=== PATIENT | female | born 1985 | race Caucasian/White ===

== ENCOUNTER → 2021-07-16 13:43 | Outpatient (BNVA) | payer BC, SELFPAY | PROVIDERS: PCP Family Medicine; Referring Provider Family Medicine; Visit Provider Physician Assistant Surgical | DX: E66.01 Morbid (severe) obesity due to excess calories (principal); Z71.3 Dietary counseling and surveillance | CPT/HCPCS: 99202 ==

== ENCOUNTER 2021-07-16 15:20 | Outpatient (REF) | payer BC, SELFPAY ==
[2021-07-19 14:30] LABS: H Pylori Breath Test Negative (Negative)
== END 2021-07-16 15:21 | disposition home or self-care (01) ==
LOC: HO.LNP 15:20
PROVIDERS: Visit Provider Physician Assistant Surgical
DX: E66.01 Morbid (severe) obesity due to excess calories (principal); Z11.0 Encounter for screening for intestinal infectious diseases
CPT/HCPCS: 83013

== ENCOUNTER → 2021-07-19 15:50 | Outpatient (BNVA) | payer BC, SELFPAY | PROVIDERS: PCP Family Medicine; Visit Provider Counselor Mental Health | DX: F33.1 Major depressive disorder, recurrent, moderate (principal); E66.01 Morbid (severe) obesity due to excess calories | CPT/HCPCS: 90791 ==

== ENCOUNTER → 2021-08-02 16:45 | Outpatient (BNVA) | payer BC, SELFPAY | PROVIDERS: PCP Family Medicine; Visit Provider Counselor Mental Health | DX: F33.1 Major depressive disorder, recurrent, moderate (principal); E66.01 Morbid (severe) obesity due to excess calories | CPT/HCPCS: 90834 ==

== ENCOUNTER → 2021-08-08 14:18 | Outpatient (BNVA) | payer BC, SELFPAY | PROVIDERS: PCP Family Medicine; Visit Provider Physician Assistant Surgical | DX: Z13.89 Encounter for screening for other disorder (principal) ==

== ENCOUNTER → 2021-08-15 16:00 | Outpatient (BNVA) | payer BC, SELFPAY | PROVIDERS: PCP Family Medicine; Visit Provider Counselor Mental Health | DX: F33.1 Major depressive disorder, recurrent, moderate (principal); E66.01 Morbid (severe) obesity due to excess calories | CPT/HCPCS: 90834 ==

== ENCOUNTER → 2021-08-20 08:17 | Outpatient (BNVA) | payer BC, SELFPAY | PROVIDERS: PCP Family Medicine; Visit Provider Dietitian, Registered | DX: E66.01 Morbid (severe) obesity due to excess calories (principal); Z68.43 Body mass index [BMI] 50.0-59.9, adult | CPT/HCPCS: 97802 ==

== ENCOUNTER 2021-08-29 08:30 | Outpatient (REF) | payer BC, SELFPAY ==
--- NOTE | ~2021-08-29 | US_ITS ---
EXAMINATION: US COMPLETE ABDOMEN WITH LIVER ELASTOGRAPHY CLINICAL INFORMATION: Morbid/severe obesity. COMPARISON: None TECHNIQUE: Real-time imaging of the abdominal viscera. Noninvasive ultrasound liver fibrosis assessment is performed using Hilario ElastPQ point quantification shear wave elastography (2D-SWE) with a C5-2 MHz transducer. Multiple elastography samples are obtained. FINDINGS: PANCREAS: Normal. The visualized pancreatic head and body are normal in appearance. The remainder of the pancreas is obscured from visualization by the overlying bowel gas. ABDOMINAL AORTA: The proximal, middle, and distal aortic segments are normal in caliber. INFERIOR VENA CAVA: Visualized portions are normal. LIVER: The liver demonstrates normal size and contour with increased echogenicity. No focal lesion or intrahepatic biliary duct dilatation. The right lobe measures 19.2 cm in length. The left lobe measures 12.9 cm in length. Portal flow is hepatopetal. Shear wave liver elastography median stiffness is 1.74 m/s (reference: Normal median stiffness is 1.3 m/s or less). IQR/median stiffness to assess sampling precision is 0.13 (reference: Good quality data set is IQR/median stiffness of 0.15 or less). GALLBLADDER: Normal. The gallbladder is physiologically distended without evidence of stones, sludge, polyps, wall thickening or pericholecystic fluid. COMMON BILE DUCT: Normal in caliber measuring 0.5 cm in diameter. RIGHT KIDNEY: Normal. No hydronephrosis. No renal calculi or focal parenchymal lesions. The kidney measures 12.7 cm in maximum dimension. LEFT KIDNEY: Normal. No hydronephrosis. No renal calculi or focal parenchymal lesions. The kidney measures 13.7 cm in maximum dimension. SPLEEN: Normal. The spleen measures 13.6 cm in maximum dimension. FREE FLUID: None. US/US abdomen comp w elastography IMPRESSION: Hepatic steatosis without focal lesion. The rest of the abdominal ultrasound is unremarkable. Liver Elastography: Median liver stiffness measures 1.74 m/s corresponding to cACLD suggested. REFERENCE: Society of Radiologists in Ultrasound Liver Stiffness Thresholds (2020): LIVER STIFFNESS THRESHOLDS: *Liver Stiffness equal or less than 1.3 m/s: High probability of being normal. *Liver Stiffness less than 1.7 m/s: In the absence of other known clinical signs, rules out compensated advanced chronic liver disease. *Liver Stiffness 1.7-2.1 m/s: Suggestive of compensated advanced chronic liver disease but need further test for confirmation. *Liver Stiffness over 2.1 m/s: Rules in compensated advanced chronic liver disease. *Liver Stiffness over 2.4 m/s: Suggestive of clinically significant portal hypertension. QUALITY OF DATA SET: *IQR/Median value equal or less than 0.15 implies a quality data set. *IQR/Median value over 0.15 implies a poor quality data set. SIGNIFICANT CHANGE FROM PRIOR EXAM: Significant change if liver stiffness measurement is 10% or greater from prior exam. OTHER CONSIDERATIONS: The stage of liver fibrosis may be overestimated in the setting of acute hepatitis, liver inflammation, elevated liver function tests, hepatic vascular congestion, obstructive cholestasis, non-fasting state, and infiltrative diseases such as amyloidosis and lymphoma. In some patients with NAFLD, the liver stiffness thresholds for compensated advanced chronic liver disease may be lower. In causes other than viral hepatitis and NAFLD, liver stiffness thresholds are not well established.
--- NOTE | ~2021-08-29 | XR_ITS ---
EXAMINATION: XR CHEST CLINICAL INFORMATION: Morbid obesity COMPARISON: None TECHNIQUE: 2 views of the chest were obtained. FINDINGS: No significant abnormality is noted involving the heart, lungs, mediastinum, bony thorax or soft tissues. XR/XR chest 2V IMPRESSION: No acute disease.
--- NOTE | ~2021-08-29 | FL_ITS ---
EXAMINATION: XR FLUOROSCOPY UPPER GI WITH AIR CLINICAL INFORMATION: Morbid obesity. COMPARISON: None TECHNIQUE: Air-contrast upper GI examination. FINDINGS: Patient swallowed thin and thick barium and half-inch diameter barium tablet without difficulty. There is normal apposition of the vocal cords while saying E. There is normal elevation of the soft palate while saying candy. No nasopharyngeal reflux or tracheal aspiration was seen. There is normal esophageal motility without mucosal abnormality or stricture. There is a minimal sliding hiatal hernia present. No gastroesophageal reflux was elicited during the study including with water siphon test. The stomach demonstrates normal distensibility without abnormal mass lesion or ulceration. There was no delay in gastric emptying. The duodenal bulb and sweep appeared unremarkable. FLUOROSCOPY TIME: 1.9 minutes DOSE AREA PRODUCT: 20.507 Gy-cm2 (high-centimeter squared) FL/FL upper GI w air IMPRESSION: Minimal sliding hiatal hernia. Otherwise, unremarkable air-contrast upper GI examination.
== END 2021-08-29 08:31 | disposition home or self-care (01) ==
LOC: HO.US 08:30
PROVIDERS: Visit Provider Physician Assistant Surgical
DX: Z01.818 Encounter for other preprocedural examination (principal); E66.01 Morbid (severe) obesity due to excess calories; K21.9 Gastro-esophageal reflux disease without esophagitis
CPT/HCPCS: 71046; 74246; 76705; 76981

== ENCOUNTER → 2021-09-13 12:15 | Outpatient (BNVA) | payer BC, SELFPAY | PROVIDERS: PCP Family Medicine; Referring Provider Physician Assistant Surgical; Visit Provider Counselor Mental Health | DX: F33.1 Major depressive disorder, recurrent, moderate (principal); E66.01 Morbid (severe) obesity due to excess calories | CPT/HCPCS: 90834 ==

== ENCOUNTER → 2021-09-19 15:01 | Outpatient (BNVA) | payer BC, SELFPAY | PROVIDERS: PCP Family Medicine; Visit Provider Physician Assistant Surgical | DX: Z13.89 Encounter for screening for other disorder (principal) ==

== ENCOUNTER → 2021-09-27 12:00 | Outpatient (BNVA) | payer BC, SELFPAY | PROVIDERS: PCP Family Medicine; Visit Provider Counselor Mental Health | DX: F33.1 Major depressive disorder, recurrent, moderate (principal); E66.01 Morbid (severe) obesity due to excess calories | CPT/HCPCS: 90832 ==

== ENCOUNTER 2021-10-05 08:41 | Outpatient (REF) | payer BC, SELFPAY ==
[2021-10-05 09:03] LABS: MANUAL DIFF FLAG NO
--- NOTE | 2021-10-05 09:07 | ECG_ITS ---
Test Reason : E66.01 Blood Pressure : / mmHG Vent. Rate : 064 BPM Atrial Rate : 064 BPM P-R Int : 168 ms QRS Dur : 094 ms QT Int : 426 ms P-R-T Axes : 021 -19 010 degrees QTc Int : 439 ms Normal sinus rhythm Incomplete right bundle branch block Borderline ECG No previous ECGs available Referred By: Abdifatah Miller Electronically Signed By:Daljit Martinez
[2021-10-05 10:29] LABS: Basophils Percent Auto 0.2 % (0-2); Eosinophils Absolute Auto 0.2 X10*3/uL (0.0-0.4); Eosinophils Percent Auto 2.2 % (0-4); Hematocrit 42.2 % (37.0-47.0); Hemoglobin 13.2 g/dl (12.0-16.0); Imm Gran Abs Auto 0.06 X10*3/uL (0.00-0.03); Imm Gran Pct Auto 0.7 % (0.0-0.4); Lymphocytes Absolute Auto 2.1 X10*3/uL (1.2-4.9); Lymphocytes Percent Auto 25.6 % (20-40); Mean Corpuscular HGB Conc 31.3 g/dl (31.0-35.0); Mean Corpuscular Hemoglobin 27.8 pg (27.0-33.0); Mean Corpuscular Volume 88.8 fL (80.0-98.0); Mean Platelet Volume 9.6 fL (9.4-12.3); Monocytes Absolute Auto 0.4 X10*3/uL (0.1-1.2); Monocytes Percent Auto 4.3 % (2-11); Neutrophils Absolute Auto 5.5 x10*3/uL (2.0-8.3); Platelet Count 313 X10*3/uL (160-400); Red Blood Count 4.75 X10*6/uL (4.20-5.50); White Blood Count 8.2 X10*3/uL (4.8-10.8)
[2021-10-05 10:35] LABS: Estimated Average Glucose 114 mg/dL; Hemoglobin A1c % 5.6 %
[2021-10-05 11:27] LABS: Ferritin 36 ng/mL (10-122); TSH reflex Free T4 1.62 uIU/mL (0.32-4.0); Vitamin D 25-OH Total 20.3 ng/mL (>30)
[2021-10-05 11:30] LABS: Folate 7.9 ng/mL (> or = 4.0); Vitamin B12 241 pg/mL (200-900)
[2021-10-05 11:42] LABS: Alanine Aminotransferase 19 U/L (0-31); Albumin Level 4.1 g/dL (3.5-5.0); Alkaline Phosphatase 55 U/L (39-117); Anion Gap 14 (12-20); Aspartate Amino Transferase 13 U/L (5-31); Bilirubin Total 0.5 mg/dL (0.0-1.0); Blood Urea Nitrogen 14 mg/dL (9-16); C Reactive Protein 1.97 mg/dL (< or = 0.50); Calcium 9.5 mg/dL (8.4-10.2); Carbon Dioxide 26 mmol/L (22-29); Chloride 104 mmol/L (96-108); Cholesterol 203 mg/dL; Estimated Glomerular Filt Rate > 60; Glucose Random 99 mg/dL (60-115); HDL Cholesterol 40 mg/dL; Iron 67 mcg/dL (30-160); LDL Cholesterol Calculated 136 mg/dl; Percent Iron Saturation 19 % (15-50); Potassium 4.7 mmol/L (3.3-5.1); Sodium 139 mmol/L (135-145); Total Iron Binding Capacity 347 mcg/dL (228-428); Triglycerides 136 mg/dL; Unsaturated Iron Binding 280 ug/dL
[2021-10-05 12:00] LABS: Insulin 21 uU/mL (2-29)
[2021-10-08 16:21] LABS: PTHI 35 pg/mL (16-77)
[2021-10-09 09:48] LABS: Calcium (PTHI) 9.5
[2021-10-10 02:52] LABS: Zinc 83 mcg/dL (60-130)
[2021-10-10 10:22] LABS: Vitamin A 37 mcg/dL (38-98)
[2021-10-11 15:41] LABS: Vitamin B1 <6 nmol/L (8-30)
== END 2021-10-05 08:42 | disposition home or self-care (01) ==
LOC: HO.LAB 08:41
PROVIDERS: PCP Family Medicine; Visit Provider Physician Assistant Surgical
DX: E66.01 Morbid (severe) obesity due to excess calories (principal)
CPT/HCPCS: 36415; 80053; 80061; 82306; 82607; 82728; 82746; 83036; 83525; 83540; 83970; 84425; 84443; 84590; 84630; 85025; 86140; 93005

== ENCOUNTER → 2021-10-11 16:00 | Outpatient (BNVA) | payer BC, SELFPAY | PROVIDERS: PCP Family Medicine; Visit Provider Counselor Mental Health | DX: F33.1 Major depressive disorder, recurrent, moderate (principal); E66.01 Morbid (severe) obesity due to excess calories | CPT/HCPCS: 90832 ==

== ENCOUNTER → 2021-11-08 09:34 | Outpatient (REF) | payer BC, SELFPAY ==
--- NOTE | 2021-11-08 09:36 | CA_ITS ---
Acquisition Time: 2021-11-08 10:08:48 Total Exercise Time: 00:05:10 Test Indications: abn ekg Medications: see chart Protocol: JOSÉ Max HR: 164 BPM 0% of Pred: * BPM Max BP: 190/060 mmHG Max Work Load: 7.0 METS exercise stress test with exercise 5 min 10 sec of José protocol, achieving 90% MPHR, with fatigue and request to stop, without anginal symptoms, without arrythmia, with normotensive response to exercise, without EKG changes meeting criteria for ischemia. Test reviewed with Dr Martinez. Referred By: Александр Allison Overread By: KHADIJAH VILLASEÑOR
== END ==
LOC: HO.CARD 09:34
PROVIDERS: PCP Family Medicine; Visit Provider Surgery
DX: I45.10 Unspecified right bundle-branch block (principal)
CPT/HCPCS: 93017

== ENCOUNTER → 2021-11-22 09:24 | Outpatient (REF) | payer BC, SELFPAY ==
--- NOTE | 2021-11-22 09:26 | CA_ITS ---
Transthoracic Echocardiogram Patient (Last, First, Middle): Tona Perez, Gender: Female Date of : 1985 Age: 36 Procedure Date: 11/22/2021 Procedure Type: Transthoracic Echocardiogram Location: OP Height: 167.64 cm Weight: 141.07 kg BSA: 2.41 m2 Heart Rate: bpm BP: 128 / 76 mmHg Office Service Coordinator: [email or web address] Referring MD: Александр Allison MD Printing Table Worker: Tera Lim MD Symptoms: I45.10 - Unspecified right bundle-branch block Study Quality: Adequate ECG Rhythm: Sinus Conclusions: - Essentially normal study Findings Left Ventricle Normal left ventricular size, thickness, and systolic function. The visually estimated ejection fraction is between 60-65%. Spectral Doppler is indicative of a normal filling pattern. Right Ventricle Normal right ventricular cavity size and systolic function. Atria The left atrium is likely dilated. Interatrial shunt cannot be excluded. The right atrium is normal in size. Aortic Valve The aortic valve structure and function is likely normal. There is no aortic valve stenosis. There is no aortic valve regurgitation. Mitral Valve Likely normal mitral valve structure and function. There is trace mitral valve regurgitation. There is no mitral valve stenosis. Pulmonic Valve The pulmonic valve was not well visualized. Tricuspid Valve Likely normal tricuspid valve structure and function. Tricuspid regurgitation envelope is inadequate for calculation of right ventricular systolic pressure. Normal right atrial pressure. Great Vessels All visible segments of the aorta are normal in size. The pulmonary artery was not well visualized. Venous The inferior vena cava is normal in size and collapses greater than 50% with inspiration. Pericardium/Pleural There is no evidence of pericardial effusion. Prior Study Comparison No prior study available for comparison. Measurements 2D Linear Measurements IVSd: 1.07 0.6-0.9/0.6-1.0 cm LVIDd: 4.78 3.9-5.3/4.2-5.9 cm LVIDd Index: 1.98 2.4-3.2/2.2-3.1 cm/m2 LVIDs: 2.89 2.0-3.6 cm LVPWd: 0.99 0.7-1.1 cm LA Diam: 3.80 2.7-3.8/3.0-4.0 cm LAIDs Index: 1.58 1.5-2.3 cm/m2 LV Mass: 219.67 67-162/88-224 g LV Mass Index: 91.15 43-95/49-115 g/m2 LVOT Diam: 1.90 3.0+(-)1.3 cm 2D Systolic Function EF 4C: 62.10 >55% EF 2C: 63.40 >55% EF BiP: 62.70 >55% Mitral Valve MV Pk E: 0.86 MV PK A: 0.50 MV Decel Time: 250.00 E/A: 1.70 E'Lateral: 14.90 E'Medial: 8.59 E/E' Med: 10.00 E/E' Lat: 5.80 PHT: 73.00 MVA PHT: 3.01 Decel [place]: 3.45 Aortic Valve AoV Pk Tray: 1.41 AoV Mn Tray: 0.96 AoV VTI: 0.38 AoV Pk Grad: 8.00 Aov Mn Grad: 4.00 LOKESH Cont.VTI: 2.14 LVOT LVOT Pk Tray: 1.11 LVOT Mn Tray: 0.72 LVOT VTI: 0.29 LVOT Pk Grad: 5.00 LVOT Mn Grad: 3.00 LVOT Diam: 1.90 LVOT Area: 2.84 Diastolic Function MV Pk E: 0.86 MV Pk A: 0.50 E/A: 1.70 E'Medial: 8.59 E/E' Med: 10.00 E' Laterial: 14.90 E/E' Lat: 5.80 Right Ventricle TAPSE (mm): 21.70 TVS' Tray: 10.80 Tricuspid Valve RA Press: 3.00 Great Vessels Aorta Sinus of Valsalva: 3.08 2.0-3.[address] [place]: 2.25 1.7-3.4 cm Ao Asc: 3.00 2.1-3.4 cm Updated in Other Vendor System with Status of Final Tera Lim MD electronically signed on 11/23/2021 5:33:42 PM with status of Final
== END ==
LOC: HO.CARD 09:24
PROVIDERS: PCP Family Medicine; Visit Provider Surgery
DX: I45.10 Unspecified right bundle-branch block (principal)
CPT/HCPCS: 93306

== ENCOUNTER 2021-12-06 08:35 | Inpatient (IN) | payer BC, SELFPAY ==
[2021-11-21 11:44] VITALS: BMI 50.2
[2021-11-22 10:41] LABS: MANUAL DIFF FLAG NO
[2021-11-22 11:07] LABS: Basophils Percent Auto 0.4 % (0-2); Eosinophils Absolute Auto 0.2 X10*3/uL (0.0-0.4); Eosinophils Percent Auto 2.5 % (0-4); Hematocrit 40.6 % (37.0-47.0); Hemoglobin 12.8 g/dl (12.0-16.0); Imm Gran Abs Auto 0.04 X10*3/uL (0.00-0.03); Imm Gran Pct Auto 0.6 % (0.0-0.4); Lymphocytes Absolute Auto 2.2 X10*3/uL (1.2-4.9); Lymphocytes Percent Auto 30.3 % (20-40); Mean Corpuscular HGB Conc 31.5 g/dl (31.0-35.0); Mean Corpuscular Hemoglobin 28.1 pg (27.0-33.0); Mean Platelet Volume 9.4 fL (9.4-12.3); Monocytes Absolute Auto 0.3 X10*3/uL (0.1-1.2); Monocytes Percent Auto 4.4 % (2-11); Neutrophils Absolute Auto 4.5 x10*3/uL (2.0-8.3); Neutrophils Percent Auto 61.8 % (45-73); Platelet Count 284 X10*3/uL (160-400); Red Blood Count 4.56 X10*6/uL (4.20-5.50); Red Cell Distribution Width 14.6 % (11.0-16.0); White Blood Count 7.2 X10*3/uL (4.8-10.8)
[2021-11-22 11:29] LABS: Prothrombin Time 11.3 SEC (10.0-13.1)
[2021-11-22 11:32] LABS: Partial Thromboplastin Time 32.2 SEC (26.0-36.4)
[2021-11-22 11:38] LABS: Alanine Aminotransferase 16 U/L (0-31); Alkaline Phosphatase 51 U/L (39-117); Anion Gap 12 (12-20); Aspartate Amino Transferase 14 U/L (5-31); Bilirubin Total 0.5 mg/dL (0.0-1.0); Blood Urea Nitrogen 10 mg/dL (9-16); C Reactive Protein 1.74 mg/dL (< or = 0.50); Carbon Dioxide 25 mmol/L (22-29); Chloride 107 mmol/L (96-108); Cholesterol 201 mg/dL; Creatinine Clr Calc Pharmacy 178.8; Estimated Glomerular Filt Rate > 60; Glucose Random 103 mg/dL (60-115); HDL Cholesterol 39 mg/dL; LDL Cholesterol Calculated 138 mg/dl; Potassium 5.1 mmol/L (3.3-5.1); Sodium 139 mmol/L (135-145); Total Protein 6.7 g/dL (6.5-8.0); Triglycerides 122 mg/dL
[2021-11-22 11:50] LABS: Estimated Average Glucose 111 mg/dL; Hemoglobin A1c % 5.5 %
[2021-11-22 11:59] LABS: TSH reflex Free T4 1.15 uIU/mL (0.32-4.0)
--- NOTE | 2021-12-01 15:38 | MHC.SHP ---
Pre-Procedural Eval Section A Date of Service: 12/01/21 The patient is an INPATIENT: Yes The History & Physical has been completed within 30 days and I have reviewed it.: Yes Section B Chief Complaint: obesity Relevant Family History (Specify if Yes): No Relevant Social History: None Present Medications: None Medical History: No relevant PMH History of Previous Operations: No relevant previous surgery Allergies: Allergies Allergy/AdvReac Type Severity Reaction Status Date / Time No Known Allergies Allergy Verified 11/23/21 15:12 Review of Systems Sugical H&P ROS: Negative: Constitution, Cardiovascular, Respiratory, Neurological, Psychiatric, Hem-Onc, Allergic/Immunologic, Gastrointestinal, Genitourinary, Musculoskeletal, Integumentary, Endocrine and Eyes/Ears/Nose/Throat Exam Surgical H&P Exam: Normal: HEENT, Normal: Heart, Normal: Lungs, Normal: Extremities, Normal: Abdomen, Normal: Skin and Normal: Neurological Plan Diagnosis/Plan: Unchanged I have reviewed the history and physical and performed a pertinent physical examination on my patient. No changes have occurred unless specified.
--- NOTE | 2021-12-05 09:39 | HO.ANESPROP2 ---
Documented by User: Tabitha Naranjo NP 12/05/21 09:41 HPI - Anesthesia Eval Consult details Narrative: 36yo F for Gastrectomy Sleeve EGD,Possible diaphragmatic hernia,Possible ventral hernia, Possible open PMFSH Active Problems Active Problems: All Active Problems (Updated 11/21/21 @ 11:42 by Maame Hill RN) Morbid obesity (Acute) Diabetes (Acute) Major depressive disorder, recurrent, moderate (Acute) DJD (degenerative joint disease) (Acute) Right bundle branch block (Acute) Past Medical History Medical History (Updated 12/06/21 @ 13:24 by Александр Allison MD) Arthritis COVID-19 vaccination declined Depression History of COVID-19 Incomplete right bundle branch block (RBBB) Family History Family History Mother No problems noted. Sister No problems noted. Brother Mental health disorder Son No problems noted. Daughter No problems noted. Surgical History Surgical History (Updated 12/06/21 @ 13:17 by YURI Murphy) History of ankle surgery Hx of knee surgery Social History Social History Are you a primary patient care provider to a significant other at home: No Do you presently have visiting nurse or other home services: No Alcohol intake: current Alcohol intake frequency: holidays/special occasions only Patient Tobacco Use Status: Never used Tobacco Use of substances other than those prescribed or required for medical reasons: No Currently Displaying Signs/Symptoms of Drug Intoxication Withdrawal: No Have you been hit, kicked, punched, or otherwise hurt by someone within the past year? If so, by whom?: No Are you DNR?: No Advance Directives: No (states is primary contact but no official HCP form) Advance Directives on File: No Recently lost weight without trying: No Eating poorly because of decreased appetite: No Nutrition Risks: No Nutritional Risk Patient : No FDLMP: 10/23/21 : No Poor oral hygiene: No service: No Current occupational status: employed Meds Allergies Allergy/AdvReac Type Severity Reaction Status Date / Time No Known Allergies Allergy Verified 11/23/21 15:12 Home Medications Medication Instructions Recorded Confirmed Last Taken Type fluoxetine 40 mg capsule 40 mg PO DAILY 07/16/21 11/21/21 Unknown History Exam Exam Date and Time: December 05, 2021 0939 Height,Weight and Vital Signs: Height 5 ft 6 in Weight 141.158 kg Pertinent Lab Results Pertinent Lab Results: Laboratory Tests 11/22/21 11/22/21 11/22/21 10:35 10:40 10:40 WBC 7.2 RBC 4.56 Hgb 12.8 Hct 40.6 MCV 89.0 MCH 28.1 MCHC 31.5 RDW 14.6 Plt Count 284 MPV 9.4 Immature Gran % (Auto) 0.6 H Neut % (Auto) 61.8 Lymph % (Auto) 30.3 Graves % (Auto) 4.4 Eos % (Auto) 2.5 Baso % (Auto) 0.4 Lymph # (Auto) 2.2 Graves # (Auto) 0.3 Eos # (Auto) 0.2 Baso # (Auto) 0.0 Abs Immat Gran (auto) 0.04 H Absolute Neuts (auto) 4.5 Absolute Nucleated RBC 0.000 Nucleated RBC % (auto) 0.0 PT 11.3 INR 1.0 APTT 32.2 Sodium Potassium Chloride Carbon Dioxide Anion Gap BUN Creatinine Estim Creat Clear Calc Estimated GFR Random Glucose Estimat Average Glucose Hemoglobin A1c % Calcium Total Bilirubin AST ALT Alkaline Phosphatase C-Reactive Protein Total Protein Albumin Triglycerides Cholesterol LDL Cholesterol, Calc HDL Cholesterol TSH Blood Type O Positive Antibody Screen NEGATIVE 11/22/21 11/22/21 10:40 10:40 WBC RBC Hgb Hct MCV MCH MCHC RDW Plt Count MPV Immature Gran % (Auto) Neut % (Auto) Lymph % (Auto) Graves % (Auto) Eos % (Auto) Baso % (Auto) Lymph # (Auto) Graves # (Auto) Eos # (Auto) Baso # (Auto) Abs Immat Gran (auto) Absolute Neuts (auto) Absolute Nucleated RBC Nucleated RBC % (auto) PT INR APTT Sodium 139 Potassium 5.1 Chloride 107 Carbon Dioxide 25 Anion Gap 12 BUN 10 Creatinine 0.62 Estim Creat Clear Calc 178.8 Estimated GFR > 60 Random Glucose 103 Estimat Average Glucose 111 Hemoglobin A1c % 5.5 Calcium 9.0 Total Bilirubin 0.5 AST 14 ALT 16 Alkaline Phosphatase 51 C-Reactive Protein 1.74 H Total Protein 6.7 Albumin 4.0 Triglycerides 122 Cholesterol 201 LDL Cholesterol, Calc 138 HDL Cholesterol 39 TSH 1.15 Blood Type Antibody Screen Narrative Narrative: EKG 09/2021 Vent. Rate : 064 BPM ? ? Atrial Rate : 064 BPM ?? P-R Int : 168 ms? QRS Dur : 094 ms ? ? QT Int : 426 ms ? ? ? P-R-T Axes : 021 -19 010 degrees ?? QTc Int : 439 ms ? Normal sinus rhythm Incomplete right bundle branch block Borderline ECG No previous ECGs available Exercise stress 10/2021 Protocol: MATT ? Max HR: 164 BPM ? 0% of? Pred: ? * BPM Max BP: 190/060 mmHG Max Work Load: 7.0 METS ? exercise stress test with exercise 5 min 10 sec of Matt protocol, achieving 90% ?MPHR, with fatigue and request to stop, without anginal symptoms, without ?arrythmia, with normotensive response to exercise, without EKG changes meeting ?criteria for ischemia. Test reviewed with Dr Martinez. ECHO 11/2021 Conclusions: - Essentially normal study ? Assessment and Plan Assessment Anesthesia Assessment: Chart Reviewed Documented by User: Jayce An MD 12/06/21 17:46 HPI - Anesthesia Eval Consult details Narrative: 36yo F for Gastrectomy Sleeve EGD,Possible diaphragmatic hernia,Possible ventral hernia, Possible open functional status greater than 4 mets [facility] Past Medical History Medical History (Updated 12/06/21 @ 13:24 by Александр Allison MD) Arthritis COVID-19 vaccination declined Depression History of COVID-19 Incomplete right bundle branch block (RBBB) Functional capacity: independent ambulation Family History Family History Mother No problems noted. Sister No problems noted. Brother Mental health disorder Son No problems noted. Daughter No problems noted. Family history of problems with anesthesia: No Surgical History Surgical History (Updated 12/06/21 @ 13:17 by YURI Murphy) History of ankle surgery Hx of knee surgery History of Problems with Anesthesia: No Social History Social History Are you a primary patient care provider to a significant other at home: No Do you presently have visiting nurse or other home services: No Alcohol intake: current Alcohol intake frequency: holidays/special occasions only Patient Tobacco Use Status: Never used Tobacco Use of substances other than those prescribed or required for medical reasons: No Currently Displaying Signs/Symptoms of Drug Intoxication Withdrawal: No Have you been hit, kicked, punched, or otherwise hurt by someone within the past year? If so, by whom?: No Are you DNR?: No Advance Directives: No (states is primary contact but no official HCP form) Advance Directives on File: No Recently lost weight without trying: No Eating poorly because of decreased appetite: No Nutrition Risks: No Nutritional Risk Patient : No FDLMP: 10/23/21 : No Poor oral hygiene: No service: No Current occupational status: employed Meds Allergies Allergy/AdvReac Type Severity Reaction Status Date / Time No Known Allergies Allergy Verified 11/23/21 15:12 Home Medications Medication Instructions Recorded Confirmed Last Taken Type fluoxetine 40 mg capsule 40 mg PO DAILY 07/16/21 11/21/21 Unknown History Exam Airway Mallampati Class: III TM Dist: >3cm Neck ROM: Full Loose/Missing/Broken Teeth: Yes (Crowns , fillings ) Heart: S1,S2 Lungs: b/l breath sounds Assessment and Plan Assessment Anesthesia Assessment: Anesthesia Plan Discussed Final Anesthetic Review Family History of Problems with Anesthesia: No History of Problems with Anesthesia: No NPO: Yes ASA Class: III Final Preanesthetic Review: Meds/Allgs Chart Reviewed, Consent Obtained/Reviewed and Anes Risks/Benef Reviewed Patient Risk: Intermediate Procedure Risk: Intermediate Anesthetic Plan Anesthetic Plan: GA Disposition: Standard PACU
[2021-12-05 12:41] LABS: COVID-19 Test Negative (Negative); IDNOW Serial# 16C4AD1C
[2021-12-06] VITALS (11 sets, daily range): BP systolic 118–152; BP diastolic 49–83; PULSE 68–86; RESP 15–20; TEMP 36.1–36.8; O2SAT 93–98
[2021-12-06 08:45] LABS: UPreg QC Valid YES
[2021-12-06 08:46] LABS: Urine Pregnancy NEGATIVE (NEGATIVE)
[2021-12-06] MEDS: Lactated Ringers 1,000 ML 100 ML IVCONT (09:15)
[2021-12-06] MEDS: Lactated Ringers 1,000 ML 999 ML IV (09:15)
--- NOTE | 2021-12-06 10:18 | PM.PNGS ---
Subjective Subjective Date of Service: 12/07/21 Interval history: Patient has mild incisional pain, but was able to ambulate and use the incentive spirometer. She is tolerating phase 1 bariatric diet Physical Exam Vital Signs: Vital Signs: Last Vital Signs Temp 97.3 F 12/06/21 09:12 Pulse 68 12/06/21 09:12 Resp 16 12/06/21 09:12 BP 118/71 12/06/21 09:12 Pulse Ox 96 12/06/21 09:12 O2 Del Method 12/06/21 09:12 BMI result Body Mass Index 50.2 GI: Inspection: Yes normal to inspection, Yes incision (clean, dry and intact) and Yes obesity Extrem: Right lower extremity: normal to inspection (no calf tenderness) Left lower extremity: normal to inspection (no calf tenderness) Objective Data Active Medications Lactated Ringer's (Lr) 1,000 mls @ 100 mls/hr IVCONT .Q10H MORENA Last Admin: 12/06/21 09:15 Dose: 100 mls/hr Documented By: MALOU Lactated Ringer's (Lr) 1,000 mls @ 999 mls/hr IV .Q1H1M MORENA Stop: 12/06/21 10:45 Last Admin: 12/06/21 09:15 Dose: 999 mls/hr Documented By: MALOU Labs CBC & Chem 7: 12/07/21 05:19 12/07/21 05:19 Labs: Laboratory Results - last 24 hr 12/05/21 12/06/21 12:14 08:36 Urine Test NEGATIVE COVID-19 (MILI) Negative COVID-19 Clin Com See Note Procedures Date of Service Date of Service: 12/07/21 Progress Note: A&P Assessment and plan (1) Morbid obesity: Status: Acute Assessment and Plan: s/p laparoscopic sleeve gastrectomy and gastropexy Doing well Check am labs. If OK, will discharge home? (2) Diabetes: Status: Acute (3) Major depressive disorder, recurrent, moderate: Status: Acute (4) DJD (degenerative joint disease): Status: Acute (5) Right bundle branch block: Status: Acute (6) Steatosis, liver: Status: Acute (7) Liver fibrosis: Status: Acute (8) S/P laparoscopic sleeve gastrectomy: Status: Acute (9) Hepatomegaly: Status: Acute Time Spent With Patient Time: Total time spent is greater than 50% in coordination of care (as documented) at patient's floor/unit and/or counseling patient: Quality Stroke Does the patient have a stroke diagnosis?: No VTE Prior VTE?: No VTE Risk Level:: Surgical - moderate VTE Device Contraindication: N/A - Device Ordered VTE Drug Contraindication: Treatment Not Indicated
--- NOTE | 2021-12-06 10:20 | PM.OP ---
Brief Operative Note Date of Service: 12/06/21 Pre-op diagnosis: Morbid obesity with comorbidities (see below) Post-op diagnosis: same (& severe hepatomegaly) Procedure: INITIAL PATIENT BMI ON PRESENTATION AT OUR OFFICE: 55.1 kg/m2 LAST BMI BEFORE SURGERY: 48.6 kg/m2 COMORBIDITIES: Prediabetes, depression, DJD, liver steatosis, liver fibrosis, hepatomegaly ?The patient presented to the Weight Management Program with significant obesity that was negatively impacting the patient's comorbidities as listed above.? The program is a phased program with a special focus on preoperative medical weight management to promote substantial weight loss and prepare the patients for the second phase of the program: bariatric surgery. The patient participated in an intensive weekly lifestyle ?intervention and exercise program during which the patient ?has lost between the initial office visit and the last preoperative visit 39.4lbs, or 11.53% of initial actual body weight. It was deemed appropriate for the patient to now have bariatric surgery. In light of the current Covid-19 pandemic and the well documented strong association of obesity and increased risk of worse outcomes if infected with Covid-19 (REFERENCES:https://pubmed.ncbi.nlm.nih.gov/97025893/,?https://pubmed.ncbi.nlm.nih.gov/00062354/), any delay in undergoing bariatric surgery may lead to the patient's worsening health condition and increased?risk of more severe Covid-19 disease if infected. In addition a recent?study from [facility] published in [facility] on 04/16/2021 ([email or web address]) found that, among patients with obesity, substantial weight loss achieved with surgery was associated with improved outcomes of COVID-19 infection. The findings suggest that obesity can be a modifiable risk factor for the severity of COVID-19 infection. In addition, the patient met the BMI-criteria for bariatric surgery based on the BMI on initial presentation. The patient should not be penalized for achieving such weight loss because ?it is not sustainable long-term without surgical intervention and it was achieved in preparation for bariatric surgery ?under my direction and based on my published research ([email or web address]).pdf and?https://www.soard.org/article/C7915-0259(88)29755-X/pdf) ?that a 10% preoperative weight loss improves long-term weight loss after surgery and reduces perioperative complications.? Insurance carriers such as [facility] have endorsed my recommendations ?and have included in their policies criteria to include a 10% preoperative weight loss requirement. PROCEDURE: Esophago-gastroscopy, laparoscopic repair of incarcerated diaphragmatic hernia, laparoscopic lysis of adhesions, laparoscopic sleeve gastrectomy and laparoscopic gastropexy INDICATIONS: This is a 36 year-old female who was electively scheduled for laparoscopic, possibly open sleeve gastrectomy. The risks and complications of the procedure were discussed with the patient in advance, particularly the possibility of ; pulmonary embolism; staple line leak; bleeding; GERD; cardiac, pulmonary, or renal complications; as well as long-term problems such as insufficient weight loss, vitamin deficiency, strictures, or ulcers. The patient understood all the risks, and was in agreement to proceed with surgery. DESCRIPTION OF PROCEDURE: After informed consent was obtained from the patient, the patient was given preoperative antibiotics, and was transferred to the operating room. After successful induction of general anesthesia, pneumatic compression devices were placed on both lower extremities. An upper endoscopy was performed next. The oropharynx and esophagus appeared to be within normal limits. There was no diaphragmatic hernia present. The stomach was entered. Then after all fluid and air were suctioned and the stomach was fully decompressed, the scope was withdrawn and secured in the mid esophagus. The patient was then prepped and draped in the usual sterile manner, and abdominal access was established at the right upper quadrant with the Pancho technique. A 12 mm blunt port was inserted, and the abdomen was insufflated with CO2 to a pressure of 15 mmHg. Under direct visualization, additional ports were placed, specifically two 5 mm Versi-step ports to the left upper quadrant, and a 5 mm Versi-Step port to the right upper quadrant. 1% lidocaine plain was used to infiltrate all port sites as well as all fascia defects. Using the EndoClose suture passer device, I placed a #1 Polysorb tie across the falciform ligament in order to retract it up against the abdominal wall and prevent injury of the ligament with our instruments during the procedure. Following that, the patient was placed in a steep reverse Trendelenburg position. An additional 5 mm port was placed to the right flank for the Mediflex retractor that was used to retract the left lobe of the liver. The patient had severe hepatomegaly that made the procedure very difficult as exposure was very challenging. This prolonged the operation for 45 minutes. The gastro-esophageal fat pad was opened with the ultrasonic device (Thunderbeat, Olympus) and the anterior esophagus and hiatus were exposed. The angle of His was opened with the ultrasonic device the fundus of the stomach from any diaphragmatic and splenic attachments. I then opened the gastrocolic ligament between the transverse colon and the greater curvature of the stomach with the ultrasonic device to enter the lesser sac and facilitate the ligation of the short gastric vessels. I started at a mid-point along the greater curvature and using the Thunderbeat, all short gastric vessels were divided all the way to the angle of His until the left kanu was completely dissected at its entirety. I then divided the gastro-colic ligament distally to a distance of about 3-4 cm proximal to the pylorus. The stomach was then divided transversely with one Endo AMADA-45 purple, one AMADA-45 orange load and four AMADA-60 articulating orange loads using the AEON stapler and loads. Every effort was made that the gastric sleeve had a tubular shape and an even caliber throughout. Once the sleeve resection was completed, the staple line of the gastric sleeve was reinforced with Hemoclips. The resected stomach was retrieved without difficulty from the Pancho port. A gastropexy was then performed in order to prevent postoperative GERD and partial gastric volvulus. Several interrupted 2.0 Surgidac sutures were placed between the sleeve's staple line and the previously divided greater omentum and gastro-colic ligament using the Endo-Stitch device. ?An upper endoscopy was performed. There was no narrowing at the GE junction. The scope was easily advanced all the way to the pylorus which was clearly visualized. There was no narrowing anywhere and the sleeve's caliber was even throughout. The sleeve's staple line was inspected and there was no evidence of ischemia, bleeding or dehiscence. At that point the gastroscope was withdrawn from the patient?s mouth while we were decompressing the bowel and the stomach from any remaining air. I looked into the lesser sac to see how the sleeve was situating and it was situating well. There was no bleeding from the staple line, spleen, or short gastric vessels. The Mediflex retractor was removed, and the undersurface of the liver was inspected and there was no bleeding. The patient was placed in supine position. I closed the fascial defect of the 12 mm port site with a figure of eight #1 Polysorb suture. Then 60ml of Ropivacaine plain with 10 mg of Dexamethasone were used to infiltrate the fascial closure as well as all skin incisions. A total of 7ml Zynrelef was applied in the Pancho wound. At this point, the abdomen was deflated, all ports were removed under direct vision, and no bleeding was noted from any of the port sites. The skin incisions were irrigated with saline and were closed with 4-0 absorbable monofilament sutures. Steri-Strips and OpSites were used to cover all incisions. The patient was extubated and was transferred in stable condition to the recovery room for further care. I was present and performed all banks parts of the procedure. Mr. Miller was the optometrist assistant. There were no residents to assist with this case. Parth Allison MD, PhD, FACS Surgeon: Александр Allison MD Anesthesia: GETA, local and other (TAP block) Was an [employer] used for this Procedure?: No [employer]: Abdifatah Miller Estimated blood loss (mL): 10 IV fluids (mL): 3,000 Urine output (mL): 0 (No Croft to record) Pathology: other (Stomach) Condition: stable Disposition: PACU
--- NOTE | 2021-12-06 13:16 | P.DS_ITS ---
DS: Providers Provider Date of Service: 12/07/21 Date of admission: 12/06/21 08:35 Primary care physician: Eric Peña DO DS: Diagnosis Discharge Diagnosis (1) Morbid obesity: Status: Acute (2) Diabetes: Status: Acute (3) Major depressive disorder, recurrent, moderate: Status: Acute (4) DJD (degenerative joint disease): Status: Acute (5) Right bundle branch block: Status: Acute (6) Steatosis, liver: Status: Acute (7) Liver fibrosis: Status: Acute DS: Summary Hospital Course Hospital Course: ADMITTING DIAGNOSIS: morbid obesity, ? DISCHARGE DIAGNOSIS: same, s/p laparoscopic sleeve gastrectomy ? PAST SURGICAL HISTORY: ankle and knee surgery ? PROCEDURE: upper endoscopy, laparoscopic sleeve gastrectomy ? DISCHARGE SUMMARY: ? History of Present Illness: ? The patient is a?36 year-old woman with a BMI of?55.1 kg/m2 and associated co- morbidities as described above. The patient had extensive work-up,lost?30 lbs preoperatively and was electively scheduled for laparoscopic, possible open sleeve gastrectomy and gastropexy. Risks and complications of the surgery were discussed with the patient in advance, particularly the possibility of , pulmonary embolism, anastomotic leak, bleeding, bowel injury, GERD, cardiac, renal or pulmonary complications. The patient understood all the risks and was in agreement with the surgical plan. ? Hospital Course: ? The patient underwent an uneventful laparoscopic sleeve gastrectomy with gastropexy on the day of admission. Postoperatively, the patient was transferred to the surgical floor. The patient received IV Acetaminophen and IV dilaudid for pain control. Patient was started on bariatric phase 1 diet POD #0. On postoperative day one, the patient was feeling well without nausea, vomiting, fevers, or tachycardia. The patient had some mild incisional pain and the abdomen was soft. ? On the morning of postoperative day one, the patient was continued on 1 ounce of water or ice every half hour. During the day, the patient did fairly well, having some incisional pain, but able to ambulate adequately and to tolerate liquids well. ? Since the patient is doing well, we decided that the patient was ready to be discharged. The patient was given instructions to follow-up with me next week and to call my office for any fever over 101, persistent abdominal pain, nausea, vomiting, GERD, symptoms of DVT such as calf tenderness, or leg swelling, or pulmonary embolism such as chest pain or shortness of breath. The patient was also instructed to drink 40-60 ounces of liquids per day using the 1-ounce cups. The patient had been given prescriptions for Tylenol for pain, Zofran prn for nausea, and pantoprazole and carafate previously. The patient was encouraged to ambulate and use the incentive spirometer. The patient was allowed to shower, but no baths, and encouraged to stay active at home. All of these instructions were given to the patient personally. All questions were answered and the patient understood all instructions, the instructions were also given to the patient in print. Time Spent with Patient Time attestation: Total time spent providing and/or coordinating discharge services: Discharge coordination time: Less than 30 minutes Quality: Safe Use of Opioids Does Pt have an Active Cancer Diagnosis on the Problem List?: No Quality: Stroke Does the patient have a stroke diagnosis?: No Physical Exam Vital Signs: Vital Signs: Last Vital Signs Temp 97.3 F 12/06/21 09:12 Pulse 68 12/06/21 09:12 Resp 16 12/06/21 09:12 BP 118/71 12/06/21 09:12 Pulse Ox 96 12/06/21 09:12 O2 Del Method 12/06/21 09:12 BMI result Body Mass Index 50.2 DS: Data Data Completed and Pending Pending studies at discharge: Pending at discharge 12/06/21 12:29 Surgical [PTH] Routine Labs on day of discharge: Laboratory Results - last 24 hr 12/06/21 08:36 Urine Test NEGATIVE Discharge Plan Discharge Patient Disposition: Home, Self-Care Discharge Diagnosis: s/p laparoscopic sleeve gastrectomy Referrals: Eric Peña DO [Primary Care Provider] - 1 Week Discharge Medications: Continued pantoprazole 40 mg tablet,delayed release (DR/EC) 40 mg PO DAILY Qty: 30 3RF sucralfate 100 mg/mL suspension 10 ml PO BID Qty: 400 2RF ondansetron HCl 4 mg tablet 4 mg PO Q6H PRN (Reason: nausea and vomiting) Qty: 20 0RF fluoxetine 40 mg capsule 40 mg PO DAILY Discontinued cholecalciferol (vitamin D3) 125 mcg (5,000 unit) capsule 125 mcg PO DAILY Qty: 90 1RF vitamin A 10,000 unit capsule 1 cap PO DAILY Qty: 90 0RF thiamine HCl (vitamin B1) 100 mg tablet 100 mg PO DAILY Qty: 90 0RF polyethylene glycol 3350 [Miralax] 17 gram powder in packet 17 g PO DAILY Qty: 14 0RF Rx Instructions: 7 packets, each one dissolved in 8 oz water starting at 7 am on 12/04/21. Repeat process on 12/05/21 Discharge Orders: Discharge Order (Routine); Ordered 12/07/21 Ordered By: Александр Allison Activity on Discharge: No heavy lifting Stand Alone Forms: Patient Portal Discharge page Care Plan Goals: weight loss Health Concerns: morbid obesity Plan of Treatment: No tub baths, sex or returning to work until discussed at first post op appointment. No exercise, alcohol, tobacco or illegal drug use. Continue to use incentive spirometer hourly while awake. Walk in home for 5- 10 minutes every 2 hours during the first week. Follow all instructions in the bariatric handbook and call with any questions.Discharge Instructions 1. Please call your doctor or come back to the emergency room should any new symptoms arise. 2. You will receive a courtesy call from [facility] 24-48 hours after discharge. 3. Activity: abstain from alcohol, practice limited stair climbing, no bending, no driving, no exercise, no illicit substances, no lifting, no sex, no tub bath, no work. 4. Diet: continue as discussed with Dr. Allison. 5. Dressing Change/Wound Care: Your incision is covered by clear bandages and guaze underneath. If the area is tender, you may apply an ice pack for short intervals (no more than 20 minutes on, followed by at least 20 minutes off). Do not apply heat. Do not use creams, lotions, or topical antibiotics unless instructed to do so by your surgeon. These can cause infection or allergic reaction. 6. Call your doctor if: - Your temperature exceeds 101.5 F - You experience excessive pain or swelling - You have an unexpected reaction to medication - You have excessive bleeding - You experience continued vomiting/nausea - Your incision begins to separate - Your incision shows signs of infection such as increased redness, swelling, excessive pain, heat, or drainage (light blood or clear fluid is normal) 7. General instructions: No lifting greater than 5 lbs for the next 4 weeks[address] driving within 24 hours of taking narcotic pain medications. If you do not move your bowels in the next 2 days, please take milk of magnesia over the counter. Please follow the post op diet and do not advance your diet until you are seen in the office in about 2 weeks. Please walk around your home every hour or two to prevent blood clots from forming in your legs. You do not need to wake from sleeping to walk. Please sleep in a bed or couch to prevent kinking at the hips and knees. Please take your incentive spirometer (your lung scraper meat) home with you and use it for the next few days to prevent pneumonias. You may shower, no hot tubs, baths or swimming pools. Please call the office with any questions or concerns such as increasing abdominal pain, fever, chills, shortness of breath, chest pain, leg pain or swelling, or redness or drainage from your incisions. Please stay on stage 3 diet which includes sugar free clear liquids such as ice pops and jello and broth and crystal light. Avoid all carbonation. Please drink 3 protein shakes with at least 25-30 grams of protein daily or 3 of the Celebrate 4:1 shakes which can be purchased in our office. The Celebrate shakes have all of the bariatric vitamins you need if you consume these shakes. If you are drinking other protein shakes, you will need to purchase the Celebrate multivitamins and calcium that we provide in the office (they will provide all the vitamins you need). Please make sure you are consuming at least 40-60 ounces of water in addition to your 3 protein shakes daily. Do not hesitate to contact the office with any questions at . The patient's medical history has been reviewed and they are considered low risk for post op DVT and therefore DVT prophylaxis is not considered necessary. Travel after surgery was reviewed. The patient has not disclosed any travel plans during the first 30 days after surgery and they have been advised that within the first 30 days after surgery any bus, plane, train or car travel over 2 hours in duration is contraindicated due to the possibility of developing blood clots from immobility. Any travel, needs to include periods of ambulation of 10 minutes in duration every 2 hours.? The patient was instructed to discuss any plans for travel during this period with their bariatric surgeon. Assessment: stable s/p laparoscopic sleeve gastrectomy Discharge Date/Time: 12/07/21 10:18
--- NOTE | 2021-12-06 13:32 | PHA.MEDREC ---
Pharmacy Consult ? Medication Reconciliation Pharmacy has completed the medication reconciliation. Reviewed med rec done by nursing
[2021-12-06 13:38] LABS: Hematocrit 39.8 % (37.0-47.0); Hemoglobin 12.5 g/dl (12.0-16.0)
[2021-12-06 14:03] LABS: Anion Gap 17 (12-20); Blood Urea Nitrogen 8 mg/dL (9-16); Calcium 8.8 mg/dL (8.4-10.2); Carbon Dioxide 21 mmol/L (22-29); Chloride 106 mmol/L (96-108); Creatinine Clr Calc Pharmacy 175.9; Estimated Glomerular Filt Rate > 60; Glucose Random 142 mg/dL (60-115); Potassium 4.1 mmol/L (3.3-5.1); Sodium 140 mmol/L (135-145)
[2021-12-06] MEDS: Lactated Ringers 1,000 ML 125 ML IVCONT ×2 (14:40→22:12)
--- NOTE | 2021-12-06 15:45 | MHC.CM.PN ---
Addendum entered by Inge Foote 12/06/21 16:12: HCP completed, original and copies given to patient, copy uploaded to [facility], and copy filed in chart. Original Note: No IMM required Patient reports she lives with spouse and children, independent at home and community, denies use of DME or receiving home services, Not Covid vax'd, PCP is Eric Peña, Spouse will transport. HCP to be completed. D/C Plan: Home self-care
[2021-12-06] MEDS: Metoclopramide HCl 10 MG/2 ML VIAL IVPUSH (15:53)
[2021-12-06] MEDS: ceFAZolin Sodium/Dextrose,Iso 2 GM/50 ML PIGGYBACK IV (16:55)
[2021-12-06] MEDS: Famotidine/PF 20 MG/2 ML VIAL IVPUSH (22:12)
[2021-12-06] MEDS: ondansetron HCL 4 MG/2 ML VIAL IVPUSH (22:12)
[2021-12-07 03:44] VITALS: BP 126/59; PULSE 68; RESP 20; TEMP 36.6; O2SAT 94
[2021-12-07] MEDS: ondansetron HCL 4 MG/2 ML VIAL IVPUSH (05:34)
[2021-12-07] MEDS: Lactated Ringers 1,000 ML 125 ML IVCONT (05:35)
[2021-12-07 05:41] LABS: MANUAL DIFF FLAG NO
[2021-12-07 05:46] LABS: Basophils Percent Auto 0.1 % (0-2); Hematocrit 36.7 % (37.0-47.0); Hemoglobin 11.8 g/dl (12.0-16.0); Imm Gran Abs Auto 0.07 X10*3/uL (0.00-0.03); Imm Gran Pct Auto 0.6 % (0.0-0.4); Lymphocytes Percent Auto 8.5 % (20-40); Mean Corpuscular HGB Conc 32.2 g/dl (31.0-35.0); Mean Corpuscular Hemoglobin 28.4 pg (27.0-33.0); Mean Corpuscular Volume 88.2 fL (80.0-98.0); Mean Platelet Volume 9.5 fL (9.4-12.3); Monocytes Absolute Auto 0.4 X10*3/uL (0.1-1.2); Monocytes Percent Auto 3.3 % (2-11); Neutrophils Absolute Auto 10.4 x10*3/uL (2.0-8.3); Neutrophils Percent Auto 87.5 % (45-73); Platelet Count 300 X10*3/uL (160-400); Red Blood Count 4.16 X10*6/uL (4.20-5.50); Red Cell Distribution Width 14.4 % (11.0-16.0); White Blood Count 11.9 X10*3/uL (4.8-10.8)
[2021-12-07 06:08] LABS: Anion Gap 15 (12-20); Blood Urea Nitrogen 4 mg/dL (9-16); Calcium 9.1 mg/dL (8.4-10.2); Carbon Dioxide 23 mmol/L (22-29); Chloride 106 mmol/L (96-108); Creatinine Clr Calc Pharmacy 181.6; Estimated Glomerular Filt Rate > 60; Glucose Random 110 mg/dL (60-115); Potassium 4.4 mmol/L (3.3-5.1); Sodium 140 mmol/L (135-145)
[2021-12-07 08:00] VITALS: BP 120/59; PULSE 56; RESP 18; TEMP 36.4; O2SAT 97
--- NOTE | 2021-12-07 08:39 | MHC.CM.PN ---
HOME - SELF CARE RN AWARE OF PLAN
[2021-12-07] MEDS: Famotidine/PF 20 MG/2 ML VIAL IVPUSH (09:18)
[2021-12-07] MEDS: FLUoxetine HCl 20 MG CAPSULE 40 MG PO (09:18)
[2021-12-07] MEDS: 0.9 % Sodium Chloride Flush 3 ML SYRINGE IVFLUSH (09:18)
--- NOTE | 2021-12-07 10:20 | HO.POSTANES ---
Post Anesthesia Evaluation Post Anesthesia Evaluation Vital Signs: Vital Signs Temp Pulse Resp BP Pulse Ox O2 Del Method 12/07/21 08:00 97.5 F 56 18 120/59 L 97 Room Air 12/07/21 03:44 97.8 F 68 20 126/59 L 94 Room Air 12/06/21 23:54 98.3 F 79 20 139/69 95 Room Air Anesthesia: General Endotracheal-GETA Mental Status: Awake Pain Control: Satisfactory Nausea/Vomiting: None Hydration: Adequate Anesthesia-Related Issues: No Anes. Related Issues
== END 2021-12-07 10:18 | disposition home or self-care (01) | DRG 403 ==
LOC: HO.SSSA 13:19 → HO.S3 13:44
PROVIDERS: Nurse Practitioner; Physician Assistant Surgical; Admitting Provider Surgery; PCP Family Medicine; Visit Provider Surgery
PROC: 0DB64Z3 Excision of Stomach, Percutaneous Endoscopic Approach, Vertical (ICD-10-PCS; CPT 43845; principal; 2021-12-06 10:10)
DX: E66.01 Morbid (severe) obesity due to excess calories (principal); R16.0 Hepatomegaly, not elsewhere classified; K74.00 Hepatic fibrosis, unspecified; K76.0 Fatty (change of) liver, not elsewhere classified; F32.A Depression, unspecified; Z20.822 Contact with and (suspected) exposure to COVID-19; R73.03 Prediabetes; Z68.42 Body mass index [BMI] 45.0-49.9, adult; M19.90 Unspecified osteoarthritis, unspecified site; Z86.16 Personal history of COVID-19; Z79.899 Other long term (current) drug therapy
CPT/HCPCS: 36415; 80048; 80053; 80061; 81025; 83036; 84443; 85014; 85018; 85025; 85610; 85730; 86140; 86850; 86900; 86901; 87635; 88307; 88342; A4649; C9088; J0131; J0690; J1100; J1170; J1200; J2250; J2405; J2550; J2765; J2795; J3010

== ENCOUNTER → 2022-04-24 13:49 | Outpatient (BNVA) | payer BC, SELFPAY | PROVIDERS: PCP Family Medicine; Visit Provider Physician Assistant Surgical | DX: E66.9 Obesity, unspecified (principal) ==

== ENCOUNTER 2022-05-27 10:15 | Outpatient (REF) | payer BC, SELFPAY ==
[2022-05-27 10:30] LABS: MANUAL DIFF FLAG NO
[2022-05-27 11:39] LABS: Basophils Percent Auto 0.4 % (0-2); Eosinophils Absolute Auto 0.2 X10*3/uL (0.0-0.4); Eosinophils Percent Auto 2.9 % (0-4); Hemoglobin 12.9 g/dl (12.0-16.0); Imm Gran Abs Auto 0.03 X10*3/uL (0.00-0.03); Imm Gran Pct Auto 0.4 % (0.0-0.4); Lymphocytes Absolute Auto 2.3 X10*3/uL (1.2-4.9); Lymphocytes Percent Auto 32.4 % (20-40); Mean Corpuscular HGB Conc 31.5 g/dl (31.0-35.0); Mean Corpuscular Hemoglobin 27.9 pg (27.0-33.0); Mean Corpuscular Volume 88.6 fL (80.0-98.0); Mean Platelet Volume 9.6 fL (9.4-12.3); Monocytes Absolute Auto 0.3 X10*3/uL (0.1-1.2); Monocytes Percent Auto 4.3 % (2-11); Neutrophils Absolute Auto 4.2 x10*3/uL (2.0-8.3); Neutrophils Percent Auto 59.6 % (45-73); Platelet Count 292 X10*3/uL (160-400); Red Blood Count 4.63 X10*6/uL (4.20-5.50); Red Cell Distribution Width 14.6 % (11.0-16.0)
[2022-05-27 12:04] LABS: Alanine Aminotransferase 10 U/L (0-31); Alkaline Phosphatase 61 U/L (39-117); Anion Gap 14 (12-20); Aspartate Amino Transferase 13 U/L (5-31); Bilirubin Total 0.6 mg/dL (0.0-1.0); Blood Urea Nitrogen 13 mg/dL (9-16); C Reactive Protein 0.63 mg/dL (< or = 0.50); Calcium 9.5 mg/dL (8.4-10.2); Carbon Dioxide 25 mmol/L (22-29); Chloride 105 mmol/L (96-108); Cholesterol 242 mg/dL; Estimated Glomerular Filt Rate > 60; Glucose Random 85 mg/dL (60-115); HDL Cholesterol 50 mg/dL; Iron 73 mcg/dL (30-160); LDL Cholesterol Calculated 165 mg/dl; Percent Iron Saturation 23 % (15-50); Potassium 4.6 mmol/L (3.3-5.1); Sodium 139 mmol/L (135-145); Total Iron Binding Capacity 314 mcg/dL (228-428); Total Protein 6.5 g/dL (6.5-8.0); Triglycerides 136 mg/dL; Unsaturated Iron Binding 241 ug/dL
[2022-05-27 12:09] LABS: Estimated Average Glucose 97 mg/dL
[2022-05-27 12:38] LABS: Ferritin 20 ng/mL (10-122); Folate 4.1 ng/mL (> or = 4.0); Insulin 10 uU/mL (2-29); Vitamin B12 195 pg/mL (200-900); Vitamin D 25-OH Total 22.9 ng/mL (>30)
[2022-05-28 15:08] LABS: Calcium (PTHI) 9.6 mg/dL (8.6-10.2); PTHI 52 pg/mL (16-77)
[2022-05-30 15:24] LABS: Zinc 69 mcg/dL (60-130)
[2022-05-30 23:54] LABS: Vitamin A 32 mcg/dL (38-98)
[2022-05-31 17:33] LABS: Vitamin B1 9 nmol/L (8-30)
== END 2022-05-27 10:16 | disposition home or self-care (01) ==
LOC: HO.LAB 10:15
PROVIDERS: PCP Family Medicine; Visit Provider Physician Assistant Surgical
DX: Z98.84 Bariatric surgery status (principal)
CPT/HCPCS: 36415; 80053; 80061; 82306; 82607; 82728; 82746; 83036; 83525; 83540; 83970; 84425; 84443; 84590; 84630; 85025; 86140

== ENCOUNTER → 2022-06-05 08:51 | Outpatient (BNVA) | payer BC, SELFPAY | PROVIDERS: PCP Family Medicine; Visit Provider Physician Assistant Surgical | DX: Z13.89 Encounter for screening for other disorder (principal) ==

== ENCOUNTER → 2022-06-18 10:00 | Outpatient (BNVA) | payer BC, SELFPAY | PROVIDERS: PCP Family Medicine; Visit Provider Counselor Mental Health | DX: F33.1 Major depressive disorder, recurrent, moderate (principal); E66.01 Morbid (severe) obesity due to excess calories | CPT/HCPCS: 90834 ==

== ENCOUNTER → 2022-08-01 10:20 | Outpatient (BNVA) | payer BC, SELFPAY | PROVIDERS: PCP Family Medicine; Visit Provider Physician Assistant Surgical | DX: Z13.89 Encounter for screening for other disorder (principal) ==

== ENCOUNTER → 2022-10-07 10:24 | Outpatient (BNVA) | payer BC, SELFPAY | PROVIDERS: PCP Family Medicine; Visit Provider Physician Assistant Surgical ==

== ENCOUNTER → 2022-10-28 08:26 | Outpatient (BNVA) | payer BC, SELFPAY | PROVIDERS: PCP Family Medicine; Visit Provider Surgery ==

== ENCOUNTER 2022-11-04 15:00 | Outpatient (AMB) | payer BC, SELFPAY ==
--- NOTE | 2022-11-04 15:10 | A.OFFVIS_ITS ---
Intake Intake Visit Reasons: VIDEO PO LSG 12/06/21 Vise Hand Required: No Allergies No Known Allergies Allergy (Verified 10/28/22 08:37) HPI Nutrition Presentation Details LSG DOS 12/06/21 Pt has had a steady weight gain over the last several weeks due to increased snacking Reason for consult elevated BMI Diet Assmnt Details Breakfast: passion tango tea (0 calories) with Pure protein bar lunch: chobani yogurt flips or Two good with granola 4:30pm gets out of work - picks her up something and gets herself a devon tea latte. At 1 point, her was bringing her sugary coffee drinks nibbles on food while prepping for dinner. Gets stressed out that she does not what to cook for dinner. Also shares she is eating out more than she would like to due to a chaotic schedule. She reports some emotional eating (stress) related to her 's recent cancer diagnosis. She acknowledges she does not have any healthy coping strategies to deal with stress. She has also been selected for grand [employer] which is a 3 month commitment. Patient wants to get back on track with a healthy eating schedule Hydration: inadequate Vitamins: Fusion bariatric vitamin but only taking 1 daily. Dietary counseling reduction Diagnosis Nutrition problem #1 overweight/obesity As related to (etiology) #1 excess energy intake and physical inactivity As evidenced by (sign/symptom) #1 high BMI Monitoring/Goals Nutrition problem monitoring total energy intake, level of knowledge/skill, total PRO intake, total CHO intake and weight Outcome progress progressing Learning/Education Readiness to learn excellent Stages of change action Most Recent Diabetes Results: Cholesterol 242 mg/dL 05/27/22 HDL Cholesterol 50 mg/dL 05/27/22 Triglycerides 136 mg/dL 05/27/22 Creatinine 0.61 mg/dL (0.5-1.4) 05/27/22 Blood Urea Nitrogen 13 mg/dL (9-16) 05/27/22 Sodium 139 mmol/L (135-145) 05/27/22 Potassium 4.6 mmol/L (3.3-5.1) 05/27/22 Chloride 105 mmol/L (96-108) 05/27/22 Carbon Dioxide 25 mmol/L (22-29) 05/27/22 Calcium 9.5 mg/dL (8.4-10.2) 05/27/22 AST 13 U/L (5-31) 05/27/22 ALT 10 U/L (0-31) 05/27/22 Total Protein 6.5 g/dL (6.5-8.0) 05/27/22 Albumin 4.0 g/dL (3.5-5.0) 05/27/22 [facility] Medical History Arthritis COVID-19 vaccination declined Depression History of COVID-19 Incomplete right bundle branch block (RBBB) Surgical History History of ankle surgery History of gastric surgery (12/06/21) Hx of knee surgery Family History Mother No problems noted. Sister No problems noted. Brother Mental health disorder Son No problems noted. Daughter No problems noted. Social History Are you a primary critical care physician to a significant other at home: No Do you presently have visiting nurse or other home services: No Alcohol intake: former Patient Tobacco Use Status: Never used Tobacco service: No Current occupational status: employed Assessment & Plan Assessment & Plan (1) Morbid obesity: Code(s): E66.01 - Morbid (severe) obesity due to excess calories (2) Diabetes: Code(s): E11.9 - Type 2 diabetes mellitus without complications Patient Instructions: recommended getting more calories and protein during the day. avoid chobani flips , instead low sugar estonian yogurt with sincere crunch cereal. Have a protein shake at 4pm before getting too hungry. Also recommended scheduling appointment with clinician in our office to help her work on healthy coping strategies. Patient may schedule follow-up appointment with ky as desired. She is due for labs in 1 month Telehealth Telehealth Location of provider rendering services: practice address Location of patient: address on file Patient Identification confirmed using: Name, : Yes Telehealth method: video Patient verbally consented to treatment: Yes Patient verbally consented to billing insurance company: Yes Patient informed of any privacy concerns related to visit: Yes Minutes spent on Phone/Video with Pt.: 30 Coding Level of Care Code Nutr Indiv Subseq ([id number]) Diagnoses Morbid obesity E66.01 Diabetes E11.9 Time Spent (min) 30
== END 2022-11-04 15:30 | disposition home or self-care (01) ==
LOC: HO.HBS 16:33
PROVIDERS: PCP Family Medicine; Visit Provider Dietitian, Registered
DX: E66.01 Morbid (severe) obesity due to excess calories (principal); E11.9 Type 2 diabetes mellitus without complications

== ENCOUNTER → 2022-11-04 15:00 | Outpatient (BNVA) | payer BC, SELFPAY | PROVIDERS: PCP Family Medicine; Visit Provider Dietitian, Registered | DX: E66.01 Morbid (severe) obesity due to excess calories (principal); E11.9 Type 2 diabetes mellitus without complications; Z71.3 Dietary counseling and surveillance; Z98.84 Bariatric surgery status | CPT/HCPCS: 97803 ==

== ENCOUNTER 2022-12-04 08:27 | Outpatient (REF) | payer BC, SELFPAY ==
[2022-12-04 09:49] LABS: MANUAL DIFF FLAG NO
[2022-12-04 10:10] LABS: Basophils Percent Auto 0.5 % (0-2); Eosinophils Absolute Auto 0.2 X10*3/uL (0.0-0.4); Eosinophils Percent Auto 2.6 % (0-4); Hematocrit 38.5 % (37.0-47.0); Hemoglobin 12.2 g/dl (12.0-16.0); Imm Gran Abs Auto 0.02 X10*3/uL (0.00-0.03); Imm Gran Pct Auto 0.3 % (0.0-0.4); Lymphocytes Absolute Auto 2.5 X10*3/uL (1.2-4.9); Lymphocytes Percent Auto 38.3 % (20-40); Mean Corpuscular HGB Conc 31.7 g/dl (31.0-35.0); Mean Corpuscular Hemoglobin 27.3 pg (27.0-33.0); Mean Corpuscular Volume 86.1 fL (80.0-98.0); Mean Platelet Volume 9.2 fL (9.4-12.3); Monocytes Absolute Auto 0.3 X10*3/uL (0.1-1.2); Neutrophils Absolute Auto 3.5 x10*3/uL (2.0-8.3); Neutrophils Percent Auto 53.3 % (45-73); Platelet Count 284 X10*3/uL (160-400); Red Blood Count 4.47 X10*6/uL (4.20-5.50); Red Cell Distribution Width 13.9 % (11.0-16.0); White Blood Count 6.6 X10*3/uL (4.8-10.8)
[2022-12-04 10:18] LABS: Estimated Average Glucose 103 mg/dL; Hemoglobin A1c % 5.2 %
[2022-12-04 11:01] LABS: Alanine Aminotransferase 11 U/L (0-31); Albumin Level 3.8 g/dL (3.5-5.0); Alkaline Phosphatase 50 U/L (39-117); Anion Gap 8 (12-20); Aspartate Amino Transferase 13 U/L (5-31); Bilirubin Total 0.4 mg/dL (0.0-1.0); Blood Urea Nitrogen 14 mg/dL (9-16); C Reactive Protein 0.57 mg/dL (< or = 0.50); Calcium 9.1 mg/dL (8.4-10.2); Carbon Dioxide 29 mmol/L (22-29); Chloride 106 mmol/L (96-108); Cholesterol 226 mg/dL; Estimated Glomerular Filt Rate > 60; Glucose Random 89 mg/dL (60-115); HDL Cholesterol 52 mg/dL; Iron 41 mcg/dL (30-160); LDL Cholesterol Calculated 152 mg/dl; Percent Iron Saturation 13 % (15-50); Potassium 4.4 mmol/L (3.3-5.1); Sodium 139 mmol/L (135-145); Total Iron Binding Capacity 322 mcg/dL (228-428); Total Protein 6.8 g/dL (6.5-8.0); Triglycerides 110 mg/dL; Unsaturated Iron Binding 281 ug/dL
[2022-12-04 11:07] LABS: Ferritin 9 ng/mL (10-122); Insulin 10 uU/mL (2-29); TSH reflex Free T4 1.13 uIU/mL (0.32-4.0); Vitamin D 25-OH Total 27.4 ng/mL (>30)
[2022-12-04 11:23] LABS: Folate 6.2 ng/mL (> or = 4.0); Vitamin B12 497 pg/mL (200-900)
[2022-12-06 16:53] LABS: PTHI 39 pg/mL (16-77)
[2022-12-08 15:48] LABS: Zinc 70 mcg/dL (60-130)
[2022-12-09 16:59] LABS: Vitamin A 30 mcg/dL (38-98)
[2022-12-10 16:19] LABS: Vitamin B1 11 nmol/L (8-30)
== END 2022-12-04 08:28 | disposition home or self-care (01) ==
LOC: HO.LAB 08:27
PROVIDERS: PCP Family Medicine; Visit Provider Physician Assistant Surgical
DX: E66.01 Morbid (severe) obesity due to excess calories (principal); K91.2 Postsurgical malabsorption, not elsewhere classified; Z98.84 Bariatric surgery status; Z68.41 Body mass index [BMI] 40.0-44.9, adult
CPT/HCPCS: 36415; 80053; 80061; 82306; 82607; 82728; 82746; 83036; 83525; 83540; 83970; 84425; 84443; 84590; 84630; 85025; 86140

== ENCOUNTER 2022-12-04 08:27 | Outpatient (AMB) | payer BC, SELFPAY ==
--- NOTE | 2022-12-04 08:37 | A.OFFVIS_ITS ---
Intake VS Expanded 12/04/22 08:39 Height 5 ft 6 in Weight 252 lb 6.4 oz BMI 40.7 BP 131/63 Blood Pressure Location Rt brachial Blood Pressure Position Sitting Pulse 58 Pulse Source Pulse Oximeter Temp 97.6 F Temperature Source Temporal Artery Scan Pulse Oximetry 97 Oxygen Delivery Method Room Air Body Fat 118.4 Body Fat Percentage 46.9 Free Fat Mass 133.8 Muscle Mass 127.0 Visceral Mass 13.0 Water Mass 95.6 BMR 1,906 Intake Visit Reasons: (OV) PO LSG 12/06/21 Allergies No Known Allergies Allergy (Verified 12/04/22 08:39) Medication List - Last Reconciled 12/04/22 by YURI Laughlin cholecalciferol (vitamin D3) 50 mcg PO DAILY cyanocobalamin (vitamin B-12) 1,000 mcg PO DAILY fluoxetine 80 mg PO DAILY multivitamin with iron-mineral 1 tab PO DAILY vitamin A palmitate 10,000 units PO DAILY HPI HPI Comments History of Present Illness0 Details This?is a?37?yo female who is s/p LSG 12/06/2021. Presents for 1 year post op visit. Weight at last visit on 10/07/2022 was 242.8 pounds with a BMI of 39.2, weight today is 252.4 pounds, representing a 9.6 pound weight gain with a BMI today of 40.7.? No complaints of nausea, emesis, abdominal pain or reflux, or constipation. 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 finished chemo, going through radiation, now back to work. Present meal plan includes: not consistently following meal plan provided by Ericka triolga to snack on protein bars, uses [employer] shakes last 2 weeks has tried to have shakes more often for breakfast, [employer] yogurt for lunch Exercise routine includes: went to gym earlier this week, plans to go today had a tweak in her knee, but trying to get all her steps in bought an infinity hoop Did the patient ever have any of these conditions and are they resolved or still being treated? GERD: resolved DEVENDRA:? never DM:? was prediabetic preop, no meds HTN:? never Hyperlipidemia:? was borderline Post op complications:? none Heartburn symptoms? 0 Score 0-5: 0=no symptoms, 1=noticeable but not bothersome (slight or occasional), 2=noticeable, bothersome but not daily, 3=bothersome and daily, 4=affects daily activities, 5=incapacitating, unable to do daily activities How bad is the heartburn: 0 Heartburn when lying down: 0 Heartburn when standing up: 0 Heartburn after meals: 0 Does heartburn change your diet: 0 Does heartburn wake you up from sleep: 0 Do you have difficulty swallowin Do you have pain with swallowin If you take medication for reflux, does this affect your daily life: 0 Total score: 0 PFSH Medical History Arthritis COVID-19 vaccination declined Depression History of COVID-19 Incomplete right bundle branch block (RBBB) Surgical History History of ankle surgery History of gastric surgery (12/06/21) Hx of knee surgery Family History Mother No problems noted. Sister No problems noted. Brother Mental health disorder Son No problems noted. Daughter No problems noted. Social History Are you a primary respiratory care faculty to a significant other at home: No Do you presently have visiting nurse or other home services: No Alcohol intake: former Patient Tobacco Use Status: Never used Tobacco service: No Current occupational status: employed Physical Exam Vital Signs: Last Vital Signs Temp 97.6 F 12/04/22 08:39 Pulse 58 12/04/22 08:39 BP 131/63 12/04/22 08:39 Pulse Ox 97 12/04/22 08:39 Oxygen Delivery Method Room Air 12/04/22 08:39 BMI result Body Mass Index 40.7 Const General: cooperative, comfortable and no acute distress Orientation/consciousness: patient oriented x3 GI Other: soft, nontender, nondistended, incisions well healed, no hernia, no masses Neuro General: patient oriented x3 Assessment & Plan Assessment & Plan (1) S/P laparoscopic sleeve gastrectomy: Code(s): Z98.84 - Bariatric surgery status (2) Morbid obesity: Code(s): E66.01 - Morbid (severe) obesity due to excess calories Plan Pt considering going back to just a shake based plan; discussed getting around 105g protein/day which could be accomplished with 3 shakea a day plus one small protein meal. Labs ordered. We discussed that she is now once again morbidly obese and the increased risk for comorbid conditions if she continues to gain weight. Pt recognizes that she is not mentally focused on good nutrition and sometimes uses food as a coping mechanism. Has a PCP appt tomorrow, considering going back to her previous therapist but unsure if she is still in practice. I encouraged pt to let us know if she would like us to help her find a community therapist to help her process the stress surrounding her current family/health situation. RTC 3 months per pt preference and I encouraged her to reach out between visits with any concerns. Patient is morbidly obese and is not considered stable at this time. I spent a total of 30 minutes reviewing/updating records, examining the patient and counseling the patient on weight management as detailed above. Orders: Orders Vitamin B12 and Folate Today - Bariatric surgery status Comprehensive Met. Panel Today - Bariatric surgery status C Reactive Protein Today - Bariatric surgery status Ferritin Today - Bariatric surgery status Hemoglobin A1c Today . - Bariatric surgery status Insulin Today . - Bariatric surgery status IRON PROFILE Today . - Bariatric surgery status Lipid Panel Today 84 - Bariatric surgery status PTHI Today .84 - Bariatric surgery status TSH reflex Free T4 Today .84 - Bariatric surgery status Vitamin A Today - Bariatric surgery status Vitamin B1 Today . - Bariatric surgery status Vitamin D 25-OH Total Today - Bariatric surgery status Zinc Today Z.84 - Bariatric surgery status Complete Blood Count Auto Diff Today - Bariatric surgery status Coding Level of Care Code Est Pt Level 4 (55020) Diagnoses S/P laparoscopic sleeve gastrectomy Z.84 Morbid obesity E66.01
[2022-12-04 08:39] VITALS: BP 131/63; PULSE 58; TEMP 36.4; O2SAT 97; BMI 40.7
== END 2022-12-04 09:33 | disposition home or self-care (01) ==
PROVIDERS: PCP Family Medicine; Visit Provider Physician Assistant Surgical
DX: E66.01 Morbid (severe) obesity due to excess calories (principal); Z68.41 Body mass index [BMI] 40.0-44.9, adult; Z90.3 Acquired absence of stomach [part of]; Z98.84 Bariatric surgery status
CPT/HCPCS: 99214

== ENCOUNTER 2023-03-06 09:30 | Outpatient (AMB) | payer BC, SELFPAY ==
--- NOTE | 2023-03-06 09:44 | MHC.OFFVISWM ---
Intake VS Expanded 03/06/23 09:52 Height 5 ft 6 in Weight 261 lb BMI 42.1 Intake Visit Reasons: VIDEO PO LSG 12/06/21 Allergies No Known Allergies Allergy (Verified 12/04/22 08:39) Medication List - Last Reconciled 03/06/23 by YURI Laughlin cholecalciferol (vitamin D3) 50 mcg PO DAILY cyanocobalamin (vitamin B-12) 1,000 mcg PO DAILY fluoxetine 80 mg PO DAILY multivitamin with iron-mineral 1 tab PO DAILY vitamin A palmitate 10,000 units PO DAILY HPI HPI Comments History of Present Illness Details This?is a?37?yo female who is s/p LSG 12/06/2021. Presents for 15 month post op visit. Weight at last visit on 12/04/2022 was 252.4 pounds with a BMI of 40.7, weight today is 261 pounds, representing a 8.6 pound weight loss with a BMI today of 42.1 Pt reports I'm addicted to sugar because it's my coping mechanism . Feels she has no time to get to the gym since her kids' hockey started. Called a new psychiatrist and is on wait list for that. Found out she has uterine fibroids which have caused anemia; getting IUD. Present meal plan includes: 105g protein/day which could be accomplished with 3 shakes a day plus one small protein meal was plan given at last visit. All meals last 20 - 30 minutes and does not drink and eat at the same time. Exercise routine includes: was going to the gym 3-4x/week for a month but stopped when hockey started [facility] Medical History Arthritis COVID-19 vaccination declined Depression History of COVID-19 Incomplete right bundle branch block (RBBB) Surgical History History of ankle surgery History of gastric surgery (12/06/21) Hx of knee surgery Family History Mother No problems noted. Sister No problems noted. Brother Mental health disorder Son No problems noted. Daughter No problems noted. Social History Are you a primary senior care provider to a significant other at home: No Do you presently have visiting nurse or other home services: No Alcohol intake: former Patient Tobacco Use Status: Never used Tobacco service: No Current occupational status: employed Assessment & Plan Assessment & Plan (1) S/P laparoscopic sleeve gastrectomy: Code(s): Z98.84 - Bariatric surgery status (2) Morbid obesity: Code(s): E66.01 - Morbid (severe) obesity due to excess calories Plan Pt is considering OA meetings. I believe her psychiatrist will be most helpful in assisting with coping mechanisms since she admits to emotional eating. We again discussed food prep, choosing high protein items even if she does have fast food with her kids, her authority in being able to choose where/what she and her family eats even if her kids want to go elsewhere, using yogurts or bars rather than stopping at fast food as it would take the same amount of time to go into a grocery store to purchase those as it would to purchase fast food. Continue vitamin supplements, will recheck labs at 18mo. Encouraged pt to reach out between visits anytime with questions. Patient is morbidly obese and is not considered stable at this time. I spent a total of 30 minutes reviewing/updating records, examining the patient and counseling the patient on weight management as detailed above. Telehealth Telehealth Location of provider rendering services: practice address Location of patient: address on file Patient Identification confirmed using: Name, : Yes Telehealth method: video Patient verbally consented to treatment: Yes Patient verbally consented to billing insurance company: Yes Patient informed of any privacy concerns related to visit: Yes Coding Level of Care Code Tele Est Pt Level 4 (45959) Diagnoses S/P laparoscopic sleeve gastrectomy Z98.84 Morbid obesity E66.01
[2023-03-06 09:52] VITALS: BMI 42.1
== END 2023-03-06 10:17 | disposition home or self-care (01) ==
LOC: HO.HBS 10:05
PROVIDERS: PCP Family Medicine; Visit Provider Physician Assistant Surgical
DX: E66.01 Morbid (severe) obesity due to excess calories (principal); Z68.41 Body mass index [BMI] 40.0-44.9, adult; Z98.84 Bariatric surgery status
CPT/HCPCS: 99214

== ENCOUNTER → 2023-03-06 09:30 | Outpatient (BNVA) | payer BC, SELFPAY | PROVIDERS: PCP Family Medicine; Visit Provider Physician Assistant Surgical | DX: Z98.84 Bariatric surgery status (principal) ==